=== PATIENT | female | born 1995 | race American Indian/Alaskan Native ===

== ENCOUNTER 2020-12-04 12:08 | Emergency (ER) | payer MEDICAID ==
[2020-12-04 12:27] VITALS: BP 135/86
[2020-12-04 15:11] LABS: Bilirubin,Urine NEG (Negative); Blood,Urine NEG (Negative); Color,Urine Yellow (Yellow); Mucus,Urine 1+ /HPF; Protein,Urine <15 mg/dL mg/dL (Negative); Urobilinogen,Urine < 2.0 mg/dL (<2.0)
[2020-12-04 15:15] LABS: HCG Qualitative,Urine Negative (Negative)
--- NOTE | 2020-12-04 15:19 | Emergency Department Report ---
ED General Adult HPI - General Chief complaint: Chest Pain Stated complaint: CHEST PAIN/ SOB X4 DAYS Time Seen by Provider: 12/04/20 13:45 Source: patient Mode of arrival: Ambulatory Limitations: No Limitations - History of Present Illness Initial comments: Patient is a 25-year-old female who presents emergency room with complaints of chest pain and shortness of breath that began a week ago. She states that she has been having increased acid reflux. She states that she also has feels anxious. She states that she also has an occasional mild dry cough. She denies any fever, nausea, vomiting, diarrhea, radiation of the pain, pleuritic chest pain, exertional chest pain or shortness of breath, diaphoresis, leg swelling. She denies any recent travel, recent surgery, sick contacts. No past medical history. Allergy to penicillin. Patient states that she is unsure of her last menstrual cycle, she states that she was worried that she may be but has not taken a test. She denies any abdominal pain or vaginal bleeding. - Related Data Allergies Allergy/AdvReac Type Severity Reaction Status Date / Time amoxicillin Allergy Swelling Verified 12/04/20 12:24 Penicillins Allergy Swelling Verified 12/04/20 12:24 ED Review of Systems ROS: Stated complaint: CHEST PAIN/ SOB X4 DAYS Other details as noted in HPI Comment: All other systems reviewed and negative ED Past Medical Hx - Past Medical History Previous Medical History?: No - Surgical History Past Surgical History?: No - Social History Smoking Status: Never Smoker Substance Use Type: None ED Physical Exam - General Limitations: No Limitations General appearance: alert, in no apparent distress - Head Head exam: Present: atraumatic, normocephalic - Eye Eye exam: Present: normal appearance - ENT ENT exam: Present: mucous membranes moist - Respiratory Respiratory exam: Present: normal lung sounds bilaterally. Absent: respiratory distress, wheezes, rales, rhonchi, stridor, chest wall tenderness, accessory muscle use, decreased breath sounds, prolonged expiratory - Cardiovascular Cardiovascular Exam: Present: regular rate, normal rhythm, normal heart sounds. Absent: systolic murmur, diastolic murmur, rubs, gallop - Neurological Exam Neurological exam: Present: alert, oriented X3 - Psychiatric Psychiatric exam: Present: normal affect, normal mood - Skin Skin exam: Present: warm, dry, intact ED Course Vital Signs 12/04/20 12:22 Temperature 98.4 F Pulse Rate 88 Respiratory 16 Rate Blood Pressure 135/86 O2 Sat by Pulse 99 Oximetry ED Medical Decision Making - Lab Data Vital Signs 12/04/20 12:22 Temperature 98.4 F Pulse Rate 88 Respiratory 16 Rate Blood Pressure 135/86 O2 Sat by Pulse 99 Oximetry Lab Results 12/04/20 Range/Units 15:04 Urine Color Yellow (Yellow) Urine Turbidity Slightly-cloudy (Clear) Urine pH 6.0 (5.0-7.0) Ur Specific [place] 1.019 (1.003-1.030) Urine Protein <15 mg/dl (Negative) mg/dL Urine Glucose (UA) Neg (Negative) mg/dL Urine Ketones Tr (Negative) mg/dL Urine Blood Neg (Negative) Urine Nitrite Neg (Negative) Urine Bilirubin Neg (Negative) Urine Urobilinogen < 2.0 (<2.0) mg/dL Ur Leukocyte Esterase Sm (Negative) Urine WBC (Auto) 1.0 (0.0-6.0) /HPF Urine RBC (Auto) 1.0 (0.0-6.0) /HPF U Epithel Cells (Auto) 8.0 (0-13.0) /HPF Urine Mucus 1+ /HPF Urine HCG, Qual Negative (Negative) - EKG Data EKG shows normal: sinus rhythm, axis, intervals, QRS complexes, ST-T waves Rate: normal - Medical Decision Making Patient is a 25-year-old female who presents emergency room with complaints of chest pain and shortness of breath that began a week ago. She states that she has been having increased acid reflux. She states that she also has feels an xious. She states that she also has an occasional mild dry cough. She denies any fever, nausea, vomiting, diarrhea, radiation of the pain, pleuritic chest pain, exertional chest pain or shortness of breath, diaphoresis, leg swelling. She denies any recent travel, recent surgery, sick contacts. No past medical history. Allergy to penicillin. Patient states that she is unsure of her last menstrual cycle, she states that she was worried that she may be but has not taken a test. She denies any abdominal pain or vaginal bleeding. Vitals are normal. EKG is within normal limits. Will await urine results before chest x-ray. UA is within normal limits, urine is negative. Order chest x-ray. Patient states that she has to go home to her son and does not want to have her x-ray performed. Advised patient that she would have to sign out AGAINST MEDICAL ADVICE. The patient is alert and oriented x3. The patient exhibits decision-making capacity. The patient is free from distracting injury. The risk of leaving without a complete medical examination, and AGAINST MEDICAL ADVICE, were explained to the patient, and they included , disability, paralysis, permanent loss of quality of life. Patient verbalized understanding to these and was able to articulate these risk in their own words. Critical care attestation.: If time is entered above; I have spent that time in minutes in the direct care of this critically ill patient, excluding procedure time. ED Disposition Clinical Impression: Chest pain Qualifiers: Chest pain type: unspecified Qualified Code(s): R07.9 - Chest pain, unspecified Dyspnea Qualifiers: Dyspnea type: unspecified Qualified Code(s): R06.00 - Dyspnea, unspecified Disposition: DC-07 LEFT AGAINST MED ADVICE Is pt being admited?: No Does the pt Need Aspirin: No Condition: Undetermined Instructions: Nonspecific Chest Pain, Adult Referrals: PRIMARY CARE, [Primary Care Provider] - 3-5 Days Forms: AMA Form
--- NOTE | 2020-12-05 17:57 | Electrocardiograph Report ---
[facility] Test Date: 2020-12-04 Test Time: 12:28:36 Pat Name: JOE ELIZABETH Department: Room: Gender: F Molding Line Operator: SHO : 1995 Requested By: DIANA RIVERA Order Number: [id number] Reading MD: Jama Crockett Measurements Intervals [place] Rate: 71 P: 59 CT: 136 QRS: 50 QRSD: 86 T: 55 QT: 383 QTc: 417 Interpretive Statements Sinus rhythm No previous ECG available for comparison Electronically Signed On 12-05-2020 17:57:32 EDT by Jama Crockett
== END 2020-12-04 15:20 | disposition left against medical advice (07) ==
LOC: ED 12:08
DX: R07.89 Other chest pain (principal); R06.00 Dyspnea, unspecified; Z88.0 Allergy status to penicillin; Z88.1 Allergy status to other antibiotic agents
CPT/HCPCS: 81001; 81025; 93005; 99283